=== PATIENT | female | born 1950 | race Caucasian/White ===

== ENCOUNTER 2021-06-24 17:14 | Inpatient (IN) | payer MEDICARE, OTHER ==
[2021-06-24] MEDS ORDERED: Morphine 4 MG/ML VIAL ONE (17:42)
[2021-06-24] MEDS ORDERED: Ondansetron PF 4 MG/2 ML Vial ONE (17:42)
[2021-06-24] MEDS ORDERED: Boostrix 0.5 ML (Tdap) VIAL ONE (17:42)
[2021-06-24] MEDS ORDERED: Crotalidae Polyvlnt Antivenin 4 GM in Sodium Chloride 0.9% 250 ML 250 ML IVPB SCH (18:15)
[2021-06-24] MEDS ORDERED: HOLD ALL ANTI-COAGULANTS/ANTI-PLATELETS/NSAIDS PO SCH (18:15)
[2021-06-24 18:17] LABS: #Eosinphils 0.1 thou/uL (0.0-0.7); #Lymphocytes 1.9 thou/uL (1.20-3.40); #Monocytes 0.1 thou/uL (0.11-0.59); #Neutrophils 6.6 thou/uL (1.40-6.50); %Basophils 0.2 % (0.0-1.0); %Eosinophils 1.3 % (0.0-10.0); %Lymphocytes 21.9 % (21.0-51.0); %Monocytes 1.6 % (0.0-10.0); Hemoglobin 14.7 g/dL (12.0-16.0); Mean Corpuscular HGB CONC 34.1 g/dL (32.0-36.0); Mean Corpuscular Hemoglobin 31.1 pg (27.0-31.0); Mean Corpuscular Volume 91.2 fL (78.0-98.0); Mean Platelet Volume 7.2 fL (7.4-10.4); Platelet Count 252 thou/uL (130-400); Red Blood Cell (RBC) Count 4.74 mill/uL (4.20-5.40); White Blood Cell (WBC) Count 8.8 thou/uL (4.8-10.8)
[2021-06-24 18:30] LABS: Prothrombin Time 12.8 sec (12.0-14.7)
[2021-06-24 18:31] LABS: PTT 24.7 sec (22.9-36.1)
[2021-06-24 18:43] LABS: ALT (SGPT) 16 U/L (8-55); AST (SGOT) 20 U/L (5-34); Albumin 4.1 g/dL (3.4-4.8); Alkaline Phosphatase 65 U/L (40-110); Anion Gap 15 mmol/L (10-20); BUN (Urea Nitrogen) 18 mg/dL (9.8-20.1); Bilirubin, Total 0.3 mg/dL (0.2-1.2); CK (CPK) 127 U/L (29-168); Calc. Creatinine Clearance 0 mL/min (70-130); Calcium 9.3 mg/dL (7.8-10.44); Carbon Dioxide 20 mmol/L (23-31); Chloride 109 mmol/L (98-107); Globulin 3.3 g/dL (2.4-3.5); Glucose 166 mg/dL (83-110); Protein, Total 7.4 g/dL (5.8-8.1); Sodium 140 mmol/L (136-145)
[2021-06-24] MEDS ORDERED: Ondansetron ODT 4 MG TAB PO PRN (20:30)
[2021-06-24] MEDS ORDERED: traMADol HCl 50 MG TAB PO PRN (20:35)
[2021-06-24] MEDS ORDERED: HYDROcodone/Acetaminophen 10/325 mg Tablet PO PRN (20:49)
[2021-06-24] MEDS ORDERED: HYDROcodone/Acetaminophen 5/325 mg Tablet PO PRN (21:16)
[2021-06-24 23:30] VITALS: BMI 25.8
[2021-06-25] MEDS ORDERED: Crotalidae Polyvlnt Antivenin 2 GM in Sodium Chloride 0.9% 250 ML 250 ML IVPB SCH ×2 (07:30→15:00)
[2021-06-25 08:20] LABS: #Eosinphils 0.2 thou/uL (0.0-0.7); #Lymphocytes 1.9 thou/uL (1.20-3.40); #Monocytes 0.6 thou/uL (0.11-0.59); #Neutrophils 6.5 thou/uL (1.40-6.50); %Basophils 0.2 % (0.0-1.0); %Eosinophils 2.4 % (0.0-10.0); %Lymphocytes 20.2 % (21.0-51.0); %Monocytes 6.9 % (0.0-10.0); %Neutrophils 70.4 % (42.0-75.0); Hemoglobin 12.8 g/dL (12.0-16.0); Mean Corpuscular HGB CONC 32.7 g/dL (32.0-36.0); Mean Corpuscular Hemoglobin 30.1 pg (27.0-31.0); Mean Corpuscular Volume 92.1 fL (78.0-98.0); Mean Platelet Volume 7.1 fL (7.4-10.4); Platelet Count 230 thou/uL (130-400); RBC Distribution Width 12.1 % (11.5-14.5); Red Blood Cell (RBC) Count 4.24 mill/uL (4.20-5.40); White Blood Cell (WBC) Count 9.2 thou/uL (4.8-10.8)
[2021-06-25 08:34] LABS: PTT 26.4 sec (22.9-36.1); Prothrombin Time 13.4 sec (12.0-14.7)
[2021-06-25] MEDS: Methimazole 5 MG TAB PO SCH (09:01)
[2021-06-25 09:37] LABS: Albumin 3.7 g/dL (3.4-4.8)
[2021-06-25 09:38] LABS: Chloride 108 mmol/L (98-107); Sodium 138 mmol/L (136-145)
[2021-06-25 09:39] LABS: Calcium 8.3 mg/dL (7.8-10.44)
[2021-06-25 09:40] LABS: Globulin 2.7 g/dL (2.4-3.5); Glucose 183 mg/dL (83-110); Protein, Total 6.4 g/dL (5.8-8.1)
[2021-06-25 09:41] LABS: Anion Gap 10 mmol/L (10-20); Carbon Dioxide 24 mmol/L (23-31)
[2021-06-25 09:43] LABS: Alkaline Phosphatase 50 U/L (40-110); Calc. Creatinine Clearance 68 mL/min (70-130)
[2021-06-25 09:44] LABS: BUN (Urea Nitrogen) 14 mg/dL (9.8-20.1)
[2021-06-25 09:45] LABS: AST (SGOT) 19 U/L (5-34)
[2021-06-25 09:46] LABS: ALT (SGPT) 16 U/L (8-55); CK (CPK) 82 U/L (29-168)
[2021-06-25 10:01] LABS: Bilirubin, Total 0.7 mg/dL (0.2-1.2)
[2021-06-25 10:44] LABS: SARS-CoV-2 PCR by NAA Not Detected (NotDetected)
[2021-06-25 18:25] LABS: #Eosinphils 0.2 thou/uL (0.0-0.7); #Monocytes 0.6 thou/uL (0.11-0.59); #Neutrophils 5.2 thou/uL (1.40-6.50); %Basophils 0.2 % (0.0-1.0); %Eosinophils 2.7 % (0.0-10.0); %Lymphocytes 25.2 % (21.0-51.0); %Monocytes 7.3 % (0.0-10.0); %Neutrophils 64.7 % (42.0-75.0); Hemoglobin 13.4 g/dL (12.0-16.0); Mean Corpuscular Hemoglobin 30.8 pg (27.0-31.0); Mean Corpuscular Volume 93.3 fL (78.0-98.0); Mean Platelet Volume 8.5 fL (7.4-10.4); Platelet Count 166 thou/uL (130-400); RBC Distribution Width 12.1 % (11.5-14.5); Red Blood Cell (RBC) Count 4.33 mill/uL (4.20-5.40)
[2021-06-25 18:39] LABS: INR-International Normal Ratio 1.1; PTT 26.3 sec (22.9-36.1); Prothrombin Time 13.9 sec (12.0-14.7)
[2021-06-26] MEDS ORDERED: Crotalidae Polyvlnt Antivenin 2 GM in Sodium Chloride 0.9% 250 ML 250 ML IVPB SCH (02:00)
[2021-06-26 06:19] LABS: #Eosinphils 0.3 thou/uL (0.0-0.7); #Lymphocytes 1.9 thou/uL (1.20-3.40); #Monocytes 0.5 thou/uL (0.11-0.59); #Neutrophils 3.8 thou/uL (1.40-6.50); %Basophils 0.3 % (0.0-1.0); %Eosinophils 4.9 % (0.0-10.0); %Lymphocytes 29.8 % (21.0-51.0); %Monocytes 7.1 % (0.0-10.0); Hemoglobin 12.5 g/dL (12.0-16.0); Mean Corpuscular HGB CONC 32.5 g/dL (32.0-36.0); Mean Corpuscular Hemoglobin 30.1 pg (27.0-31.0); Mean Corpuscular Volume 92.7 fL (78.0-98.0); Mean Platelet Volume 7.4 fL (7.4-10.4); Platelet Count 197 thou/uL (130-400); RBC Distribution Width 11.9 % (11.5-14.5); Red Blood Cell (RBC) Count 4.14 mill/uL (4.20-5.40); White Blood Cell (WBC) Count 6.5 thou/uL (4.8-10.8)
[2021-06-26 06:35] LABS: ALT (SGPT) 12 U/L (8-55); AST (SGOT) 14 U/L (5-34); Albumin 3.4 g/dL (3.4-4.8); Alkaline Phosphatase 49 U/L (40-110); Anion Gap 6 mmol/L (10-20); BUN (Urea Nitrogen) 9 mg/dL (9.8-20.1); Bilirubin, Total 0.5 mg/dL (0.2-1.2); Calc. Creatinine Clearance 81 mL/min (70-130); Calcium 8.1 mg/dL (7.8-10.44); Carbon Dioxide 30 mmol/L (23-31); Chloride 108 mmol/L (98-107); Globulin 2.5 g/dL (2.4-3.5); Glucose 136 mg/dL (83-110); Potassium 3.9 mmol/L (3.5-5.1); Protein, Total 5.9 g/dL (5.8-8.1); Sodium 140 mmol/L (136-145)
[2021-06-26] MEDS: Methimazole 5 MG TAB PO SCH (08:08)
[2021-06-26 10:38] LABS: #Eosinphils 0.2 thou/uL (0.0-0.7); #Lymphocytes 1.6 thou/uL (1.20-3.40); #Monocytes 0.6 thou/uL (0.11-0.59); #Neutrophils 5.6 thou/uL (1.40-6.50); %Basophils 0.3 % (0.0-1.0); %Lymphocytes 19.7 % (21.0-51.0); %Monocytes 7.7 % (0.0-10.0); %Neutrophils 69.3 % (42.0-75.0); Mean Corpuscular HGB CONC 33.3 g/dL (32.0-36.0); Mean Corpuscular Hemoglobin 30.6 pg (27.0-31.0); Mean Corpuscular Volume 91.9 fL (78.0-98.0); Mean Platelet Volume 7.1 fL (7.4-10.4); Platelet Count 213 thou/uL (130-400); RBC Distribution Width 11.9 % (11.5-14.5); Red Blood Cell (RBC) Count 4.27 mill/uL (4.20-5.40)
[2021-06-26 10:49] LABS: Prothrombin Time 13.5 sec (12.0-14.7)
[2021-06-26 10:50] LABS: PTT 25.1 sec (22.9-36.1)
[2021-06-26 11:12] VITALS: BP 144/88; TEMP 97.8
== END 2021-06-26 14:18 | disposition home or self-care (01) | DRG 918 ==
LOC: ERS 17:14 → INTOOBSV 19:47 → T4-A 19:47 → OBSVTOIN 06-25 11:52
PROVIDERS: ADMIT Family Medicine; ATTEND Family Medicine
PROC: 3E0334Z Introduction of Serum, Toxoid and Vaccine into Peripheral Vein, Percutaneous Approach (ICD-10-PCS; principal; 2021-06-24)
DX: T63.091A Toxic effect of venom of other snake, accidental (unintentional), initial encounter (principal); I10 Essential (primary) hypertension; E05.90 Thyrotoxicosis, unspecified without thyrotoxic crisis or storm; Z80.0 Family history of malignant neoplasm of digestive organs; Z82.49 Family history of ischemic heart disease and other diseases of the circulatory system; Z79.890 Hormone replacement therapy; Z79.899 Other long term (current) drug therapy; Z23 Encounter for immunization
CPT/HCPCS: 36415; 80053; 82550; 85025; 85384; 85610; 85730; 90471; 90715; 96365; 96375; 96376; G0378; J0840; J2270; J2405; J7050; U0003; U0005